=== PATIENT | female | born 1960 | race Caucasian/White ===

== ENCOUNTER 2023-12-11 19:29 | Emergency (ER) | payer MEDICAID, OTHER ==
[~2023-12-11] VITALS: Ht 165.1 cm; Wt 69.2 kg
[2023-12-11 20:11] LABS: Urine Bacteria None Seen /hpf (None Seen)
[2023-12-11 20:27] LABS: Urine Blood TRACE /uL (Negative); Urine Clarity Clear (Clear); Urine Color Yellow (Yellow); Urine Mucus FEW (None Seen); Urine Protein, UAD 1+ (Negative); Urine Specific Gravity 1.025 (1.001-1.035); Urine Urobilinogen 3 mg/dL (Negative); Urine WBC 1 /hpf (0 - 5)
[2023-12-11 20:30] LABS: Hemoglobin 15.2 g/dL (12.2-16.2); Mean Corpuscular Hemoglobin 34.2 pg (28.0-32.0); Mean Corpuscular Hgb Conc. 33.7 g/dL (32.0-36.0); Mean Corpuscular Volume 101.6 fL (80.0-100.0); Red Blood Cells 4.43 10^6/uL (4.0-5.20); Red Cell Distribution Width 13.3 % (11.8-14.3); White Blood Cell 5.8 10^3/uL (4.4-10.8)
[2023-12-11 20:33] LABS: Amphetamine Screen, Urine Neg (NEGATIVE)
[2023-12-11 20:34] LABS: Barbiturate Scree,Urine Neg (NEGATIVE); Benzodiazephine Screen, Urine Neg (NEGATIVE); Cannabinoid Screen, Urine Neg (NEGATIVE); Cocaine Screen, Urine Neg (NEGATIVE); Opiate Scree,Urine Neg (NEGATIVE); Phencyclidine Screen, Urine Neg (NEGATIVE)
[2023-12-11 20:42] LABS: Basophils % (manual) 0 (0.0-2.0); Blast Cells 0; Eosinophils % (manual) 0 (0-7); Metamyelocytes % 0; Myelocytes % 0; Promyelocytes % 0; Reactive Lymphocytes 0
[2023-12-11 20:50] LABS: Band Neutrophils % (manual) 4; Lymphocytes % (manual) 23 (10.0-50.0); Monocytes % (manual) 19 (0-12); Platelet Estimate Decreased; RBC Morphology Normal
[2023-12-11 20:52] LABS: Alanine Aminotransferase 72 U/L (7-40); Albumin 4.4 g/dL (3.2-4.8); Alkaline Phosphatase 99 U/L (46-116); Anion Gap 16 (5-15); Aspartate Aminotransferase 109 U/L (13-40); BUN/Creatinine Ratio 22.6 (10.0-20.0); Blood Alcohol < 3.0 mg/dL (<10); Blood Urea Nitrogen 14 mg/dL (9-23); Calcium 10.6 mg/dL (8.5-10.1); Carbon Dioxide 20 mmol/L (20-30); Chloride 95 mmol/L (98-107); Glucose 119 mg/dL (74-106); Potassium 3.3 mmol/L (3.5-5.1); Sodium 131 mmol/L (136-145)
[2023-12-11 20:53] LABS: Bilirubin, Total 1.8 mg/dL (0.2-1.0); Total Protein 7.5 g/dL (5.7-8.2)
[2023-12-11 21:31] LABS: Acetaminophen < 2.0 UG/ML (10.0-20.0); Salicylate < 3.0 mg/dL (2.8-20.0)
[2023-12-12] MEDS: SODIUM CHLORIDE 0.9% 1,000 ML IV ONE ×2 (00:23→00:24)
[2023-12-12] MEDS: POTASSIUM EFFERVESENT TAB 25 MEQ PO ONE (00:23)
[2023-12-12 01:55] LABS: Alanine Aminotransferase 61 U/L (7-40); Albumin 3.9 g/dL (3.2-4.8); Alkaline Phosphatase 86 U/L (46-116); Anion Gap 10 (5-15); Aspartate Aminotransferase 91 U/L (13-40); BUN/Creatinine Ratio 26.9 (10.0-20.0); Blood Urea Nitrogen 14 mg/dL (9-23); Calcium 9.7 mg/dL (8.7-10.4); Carbon Dioxide 23 mmol/L (20-30); Chloride 98 mmol/L (98-107); Glucose 101 mg/dL (74-106); Potassium 3.8 mmol/L (3.5-5.1); Sodium 131 mmol/L (136-145)
[2023-12-12 01:56] LABS: Bilirubin, Total 1.6 mg/dL (0.2-1.0); Total Protein 6.8 g/dL (5.7-8.2)
[2023-12-12] MEDS ORDERED: OLAN1TAB7 PO (05:06)
[2023-12-12 05:38] VITALS: BP 138/72; PULSE 78; RESP 16; TEMP 98.6; O2SAT 100
== END 2023-12-12 05:38 | disposition still patient (30) ==
LOC: ER 19:29
DX: E87.1 Hypo-osmolality and hyponatremia (principal); E87.6 Hypokalemia; R74.8 Abnormal levels of other serum enzymes; R44.3 Hallucinations, unspecified; M19.90 Unspecified osteoarthritis, unspecified site; Z98.890 Other specified postprocedural states
CPT/HCPCS: 36415; 70450; 76705; 80053; 80307; 80320; 80329; 81001; 84484; 85007; 85027; 93005; 96360; 96361; 99284; J7030